=== PATIENT | male | born 1945 | race African-American/Black ===

== ENCOUNTER 2024-08-08 07:47 | Outpatient (REF) | payer OTHER, SELFPAY ==
--- OUTSIDE RECORDS SUMMARY | 2024-08-08 07:52 | XMS_ITS | Clinical Summary ---
Author Organization [facility] Address [address] [place] [address] Care Team Providers Care Relay Dispatcher Name Role Phone Natasha Ramírez CHEMICAL PRODUCTION MACHINE OPERATOR-Go Primary Care Provider [phone] Source Comments PLEASE NOTE, if this patient is a minor, it may be UNLAWFUL to discuss sensitive information that is contained in these records (such as FAMILY PLANNING, MENTAL HEALTH or SUBSTANCE ABUSE) with the minor patient's parent or other person without the patient's specific authorization.[facility] Allergies No known active allergies Medications aspirin [address] tabletIndications :Ischemic cardiomyopathy,My ocardial infarction, unspecified [place] type, unspecified artery (HCC-CMS),Coronar y artery disease involving [place] heart, unspecified vessel or lesion type, unspecified whether angina present Take 81 mg by mouth once daily 022 Active FARXIGA 10 mg tabIndications:Is chemic cardiomyopathy TAKE 1 TABLET BY MOUTH EVERY DAY FOR 90 DAYS 022 Active isosorbide mononitrate (IMDUR) 60 mg 24 hr tabletIndications :Ischemic cardiomyopathy TAKE 1 TABLET BY MOUTH EVERY DAY FOR 90 DAYS 023 Active metoprolol succinate XL (TOPROL-XL) 50 mg 24 hr tabletIndications :Ischemic cardiomyopathy,Es sential hypertension,Myoc ardial infarction, unspecified TX type, unspecified artery (HCC-CMS) TAKE 1 TABLET BY MOUTH EVERY DAY FOR 90 DAYS 023 Active ENTRESTO 97-103 mg tabIndications:Is chemic cardiomyopathy,Es sential hypertension,Myoc ardial infarction, unspecified [place] type, unspecified artery (HCC-CMS) TAKE 1 TABLET BY MOUTH TWICE A DAY FOR 90 DAYS 022 Active nitroglycerin (NITROSTAT) 0.4 mg SL tabletIndications :Ischemic cardiomyopathy,My ocardial infarction, unspecified TX type, unspecified artery ([facility]) TAKE 1 TABLET UNDER TONGUE EVERY 5 MINUTES FOR MAX 3 DOSES NEEDED FOR CHEST PAIN Active BRILINTA 90 mg tabIndications:Is chemic cardiomyopathy,Ve rtigo,Myocardial infarction, unspecified [place] type, unspecified artery ([facility]),Coronar y artery disease involving [place] heart, unspecified vessel or lesion type, unspecified whether angina present TAKE 1 TABLET BY MOUTH TWICE A DAY FOR 90 DAYS Active carbamide peroxide (DEBROX) 6.5 % otic solutionIndicatio ns:Impacted cerumen of left ear Place 5 Drops into the left ear 2 (two) times daily 15 mL Active blood sugar diagnostic stripsIndications :Type 2 diabetes mellitus with hyperglycemia, without long-term current use of insulin ([facility]) 1 Each daily. UAD once daily or as needed 100 Each 5 023 Active alcohol swabsIndications: Type 2 diabetes mellitus with hyperglycemia, without long-term current use of insulin ([facility]) UAD once daily or as needed 100 Each 5 023 Active lancetsIndication s:Type 2 diabetes mellitus with hyperglycemia, without long-term current use of insulin ([facility]) Once touch lancet, UAD once daily 100 Each 5 023 Active blood sugar diagnostic stripsIndications :Type 2 diabetes mellitus with hyperglycemia, without long-term current use of insulin ([facility]) 1 Each daily. One touch strips, UAD once daily 100 Each 023 Active blood-glucose meter (FREESTYLE LITE METER) monitoring kitIndications:Ty pe 2 diabetes mellitus with hyperglycemia, without long-term current use of insulin ([facility]) USE TO CHECK BLOOD SUGAR DIRECTED ONCE DAILY OR NEEDED 1 Each Active diclofenac sodium (VOLTAREN) 1 % gelIndications:Ar thralgia of both knees APPLY 2 G TOPICALLY 2 (TWO) TIMES DAILY. 100 g 2 Active Additional Information Patient not taking.Reported on 04/13/2024 furosemide (LASIX) 20 mg tabletIndications :Ischemic cardiomyopathy TAKE 3 TABLETS BY MOUTH EVERY DAY 270 Tablet 1 025 Active tirzepatide (MOUNJARO) 5 mg/0.5 mL pnijIndications:T ype 2 diabetes mellitus with hyperglycemia, without long-term current use of insulin ([facility]) Inject 5 mg into the skin once a week. 2 mL 2 025 Active atorvastatin (LIPITOR) 40 mg tabletIndications :Ischemic cardiomyopathy,My ocardial infarction, unspecified [place] type, unspecified artery ([facility]),Mixed hyperlipidemia,Co ronary artery disease involving [place] heart, unspecified vessel or lesion type, unspecified whether angina present TAKE 1 TABLET BY MOUTH EVERYDAY AT BEDTIME 90 Tablet 025 Active ferrous sulfate 325 mg (65 mg iron) EC tabletIndications :Anemia, unspecified type TAKE 1 TABLET BY MOUTH ONCE DAILY WITH BREAKFAST 90 Tablet 1 025 Active ferrous sulfate 325 mg (65 mg iron) EC tabletIndications :Anemia, unspecified type TAKE 1 TABLET BY MOUTH ONCE DAILY WITH BREAKFAST 90 Tablet 1 024 2024 Discontinued atorvastatin (LIPITOR) 40 mg tabletIndications :Ischemic cardiomyopathy,My ocardial infarction, unspecified [place] type, unspecified artery ([facility]),Mixed hyperlipidemia,Co ronary artery disease involving [place] heart, unspecified vessel or lesion type, unspecified whether angina present Take 1 Tablet by mouth nightly at bedtime 90 Tablet 025 2024 Discontinued tirzepatide (MOUNJARO) 5 mg/0.5 mL pnijIndications:T ype 2 diabetes mellitus with hyperglycemia, without long-term current use of insulin ([facility]) Inject 5 mg into the skin once a week 2 mL 2 025 2024 Discontinued(R eorder (E-Cancel Not Sent)) Active Problems Problem Noted Date Diagnosed Date Type 2 diabetes mellitus wit h hyperglycemia, without long-term current use of insulin ([facility]) 03/23/2022 Vertigo 03/19/2022 Polyp of colon 03/19/2022 Osteoarthritis of knee 03/19/2022 Overview (03/19/2022): [facility] Myocardial infarction ([facility]) 03/19/2022 Overview (03/19/2022): Bypass surgery 1989 at [id number] Hypertension 03/19/2022 Herpes zoster 03/19/2022 Overview (03/19/2022): 2011 Class 1 obesity due to exces s calories with serious comorbidity and body mass index (BMI) of 33.0 to 33.9 in adult 03/19/2022 Mixed hyperlipidemia 03/19/2022 Benign prostatic hyperplasia with urinary hesita ncy 03/19/2022 Prostate carcinoma ([facility]) 03/19/2022 Coronary artery disease involving [place] heart 0 03/19/2022 Ischemic cardiomyopathy 03/19/2022 Mild cognitive impairment 03/19/2022 Pulmonary nodule 03/19/2022 Anemia 03/19/2022 Encounters Date Type Department Care Team Description 07/15/2024 12:40 PM EDT Office Visit [facility] [address] [place] [address] Darling Lehman PA-C Foot pain, bilateral (Primary Dx) 05/24/2024 9:40 AM EDT Telemedicine Visit [facility] [address] [place] [address] PA-C Decreased hearing of right ear (Primary Dx); Vertigo from Last 3 Months Immunizations Immunization Administration Dates Next Due Flu, Adjuvant, 65y+ (Fluad) 12/30/2020 Flu, High Dose, 65y+, Fluzone High Dose 01/08/20 23,12/25/2021,12/01/2019 INFLUENZA, SEASONAL, INJECTABLE 12/05/2018,12/08,12/16/2016 PFIZER COVID VACCINE, PURPLE CAP, 12+ 11/29/2020 ,05/17/2020,04/26/2020 Pfizer COVID vaccine, COMIRN ATY, zamora cap, 12+ 07/04/2021 Pfizer COVID-19 (Comirnaty), Mrna, Lnp-s, Pf, Sal-sucrose, 30 Mcg/0.3 Ml, 12yr+ 04/16/2023 Pfizer-BioNTech COVID-19 Vac cine Bivalent, (ZAMORA PFIZER-BIONTECH COVID-19 VACCINE BIVALENT, (ZAMORA CAP 12/25/2021 TDAP 10/07/2022 ZOSTER VACCINE, RECOMBINANT (SHINGRIX) Family History Medical History Relation Name Comments Lung Cancer Father Diabetes Mother Stroke Mother aneurysm Mother Relation Name Status Comments Father Mother Social History Tobacco Use Types Packs/Day Years Used Date Smoking Tobacco: Former Cigarettes Q uit: 1987 Passive Smoke Exposure: Never Smokeless Tobacco: Never Tobacco Cessation:Counseling Given: Not Answered Comments:pt quit smoking 1987 Alcohol Use Standard Drinks/Week Comments Never 0 (1 standard drink = 0.6 oz pur e alcohol) Social Connections Answer Date Recorded Connectedness 1 04/13/2024 Financial Resource Strain Answer Date R ecorded Financial Resource Strain 1 2024 Stress Answer Date Recorded Stress 1 04/13/2024 Physical Activity Answer Date Recorded Physical Activity 0 03/19/2022 Food Insecurity Answer Date Recorded Food 1 04/13/2024 Transportation Needs Answer Date Record ed Transportation 1 04/13/2024 Housing Stability Answer Date Recorded Housing 1 04/13/2024 Safety and Environment Answer Date Bassam rded Safety 0 03/19/2022 Utilities Answer Date Recorded Utilities 1 04/13/2024 Employment Answer Date Recorded Employment 0 03/19/2022 Sex and Gender Information Value Date Recorded Sex Assigned at Male 03/19/2022 6:36 PM PST Legal Sex Male 6:48 AM PDT Gender Identity Male 03/19/2022 6:36 PM PST Sexual Orientation Straight 03/19/2022 6: 36 PM PST Last Filed Vital Signs Vital Sign Reading Time Taken Comments Blood Pressure 111/68 07/15/2024 10:12 AM EDT Pulse 61 04/13/2024 8:49 AM EST Temperature 36.8 ??C (98.3 ??F) 04/13/2024 8:49 AM ES T Respiratory Rate 16 07/15/2024 10:1 2 AM EDT Oxygen Saturation 97% 04/13/2024 8:49 AM EST Inhaled Oxygen Concentration - - Weight 85.2 kg (187 lb 12.8 oz) 025 10:12 AM EDT Height 165.1 cm (5' 5 ) 07/15/2024 10:1 2 AM EDT Body Mass Index 31.25 07/15/2024 10:12 AM EDT Plan of Treatment Health Maintenance Due Date Last Done Comments Imm-Pneumococcal 65+ (1 of 2 - PCV) 1966 Imm-Zoster, Recombinant (2 of 2) 03/07/2021 01/11/20 21 Diabetes HbA1c 07/08/2023 01/07/2023, 10/2022, 01/07/2023, Additional history exists Urine Albumin Creatinine Rat io Screening 07/25/2023 07/24/2022 Dental Examination 07/27/2023 07/24/2022 (M anaged by Outside Provider) Lipid Screening 01/08/2024 01/07/2023, 10/2022, 03/19/2022 Retinopathy Screening 08/08/2024 08/09/2023 , 08/09/2023, 07/24/2022 (Managed by Outside Provider) Serum Creatinine 03/26/2025 03/26/2024, 10/2022, 07/24/2022, Additional history exists Diabetes Foot Exam 04/13/2025 04/13/2024, 04/13/2024 Falls Prevention 04/13/2025 04/13/2024, 07/24/2022 Medicare Annual Wellness Visit 04/13/2025 04/13/2024 Tobacco Screening 07/15/2025 07/15/2024, , 04/16/2023, Additional history exists Imm-DTaP/Tdap/Td (2 - Td or Tdap) 10/07/2032 023 Colonoscopy Discontinued 02/17/2021 Colorectal Cancer Screening Discontinued Hepatitis C Screening Completed 03/19/2022 Imm-Influenza Completed 11/19/2023, 10/2022, 12/25/2021, Additional history exists Alcohol and Drug Screen Completed 04/13/2024, 03/19 Depression Annual Screen Completed 04/13/2024 [id number] Completed 05/10/2024, 10/30, 04/16/2023, Additional history exists CT Colonography Discontinued FIT/gFOBT Discontinued Fecal DNA Discontinued Flexible Sigmoidoscopy Discontinued Procedures Procedure Name Priority Date/Time Associated Diagnosis Comments EYE EXAM 08/09/2023 3:00 AM EDT COMPREHENSIVE METABOLIC PANEL Routine 01/07/2023 3:57 PM EST Routine general medical examination at a health care facility LIPID PANEL Routine 01/07/2023 3:57 PM EST Routine general medical examination at a health care facility HEMOGLOBIN GLYCOSYLATED A1C Routine 01/07/2023 3:57 PM EST Routine general medical examination at a health care facility MICROALBUMIN/CREATININ E RATIO, URINE, RANDOM Routine 07/24/2022 9:32 AM EDT Prostate carcinoma (HCC-CMS) Type 2 diabetes mellitus with hyperglycemia, without long-term current use of insulin (HCC-CMS) Class 1 obesity due to excess calories with serious comorbidity and body mass index (BMI) of 33.0 to 33.9 in adult Hypertension, unspecified type Myocardial infarction, unspecified [place] type, unspecified artery (HCC-CMS) Mixed hyperlipidemia Benign prostatic hyperplasia with urinary hesitancy Coronary artery disease involving [place] heart, unspecified vessel or lesion type, unspecified whether angina present Mild cognitive impairment Anemia, unspecified type HEPATITIS C AB W/RFLX HCV RNA, QT, RT PCR Routine 03/19/2022 4:20 PM EST Vertigo Essential hypertension Myocardial infarction, unspecified [place] type, unspecified artery (HCC-CMS) Class 1 obesity due to excess calories with serious comorbidity and body mass index (BMI) of 33.0 to 33.9 in adult Encounter to establish care Ischemic cardiomyopathy Prostate carcinoma (HCC-CMS) Benign prostatic hyperplasia with urinary hesitancy Anemia, unspecified type Mixed hyperlipidemia Coronary artery disease involving [place] heart, unspecified vessel or lesion type, unspecified whether angina present Mild cognitive impairment Pulmonary nodule HISTORIC COLONOSCOPY 02/17/2021 3:00 AM EST from Last 3 Months or Most Recently Relevant to Health Maintenance Results * EYE EXAM (08/09/2023 3:00 AM EDT) 08/09/2023 3:00 AM EDT us Natasha AZARP-C OTHER Edited Re sult - Final * (ABNORMAL) HEMOGLOBIN GLYCOSYLATED A1C (01/07/2023 3:57 PM EST) HEMOGLOBIN A1C 7.3(H) <5.7 % of total Hgb Editorially Comment: For someone without known diabetes, a hemoglobin A1c value of 6.5% or greater indicates that they may have diabetes and this should be confirmed with a follow-up test. For someone with known diabetes, a value <7% indicates that their diabetes is well controlled and a value greater than or equal to 7% indicates suboptimal control. A1c targets should be individualized based on duration of diabetes, age, comorbid conditions, and other considerations. Currently, no consensus exists regarding use of hemoglobin A1c for diagnosis of diabetes for children. ?? Blood Blood / Unknown 01/07/2023 3 :57 PM EST 01/07/2023 3:57 PM EST Narrative [facility] - 01/08/2023 6:57 AM EST FASTING:NO Natasha Ramírez CHEMICAL PRODUCTION MACHINE OPERATOR-C LAB - BLOOD DRAW Final Re sult [facility] [address] [place] [id number], Editorially [address] [place] [id number] * (ABNORMAL) LIPID PANEL (01/07/2023 3:57 PM EST) CHOLESTEROL, TOTAL 126 <200 mg/dL Editorially HDL CHOLESTEROL 31(L) > OR = 40 mg/dL Editorially TRIGLYCERIDES 247(H) <150 mg/dL Editorially Comment: If a non-fasting specimen was collected, consider repeat triglyceride testing on a fasting specimen if clinically indicated. Velasquez et al. J. of Clin. Lipidol. 2015;9:129-169. LDL-CHOLESTEROL 64 99 mg/dL (calc) Editorially Comment: Reference range: <100 Desirable range <100 mg/dL for primary prevention; ?? <70 mg/dL for patients with CHD or diabetic patients with > or = 2 CHD risk factors. LDL-C is now calculated using the Erin calculation, which is a validated novel method providing better accuracy than the Friedewald equation in the estimation of LDL-C. Ceasar RICKETTS et al. BANDAR. 2013;310(19): 2421-9421 (http://education.iFulfillment/faq/ENQ072) CHOL/HDLC RATIO 4.1 <5.0 (calc) [facility] NON-HDL CHOLESTEROL 95 <130 mg/dL (calc) [facility] Comment: For patients with diabetes plus 1 major ASCVD risk factor, treating to a non-HDL-C goal of <100 mg/dL (LDL-C of <70 mg/dL) is considered a therapeutic option. Blood Blood / Unknown 01/07/2023 3 :57 PM EST 01/07/2023 3:57 PM EST Narrative [facility] - 01/08/2023 6:57 AM EST FASTING:NO Natasha Ramírez CHEMICAL PRODUCTION MACHINE OPERATOR-C LAB - BLOOD DRAW Final Re sult [facility] [address] [address], [facility] [address] [address] * (ABNORMAL) COMPREHENSIVE METABOLIC PANEL (01/07/2023 3:57 PM EST) GLUCOSE 191(H) 65 - 139 mg/dL [facility] Comment: ?Non-fasting reference interval UREA NITROGEN (BUN) 31(H) 7 - 25 mg/dL [facility] CREATININE (blood) 1.65(H) 0.70 - 1.28 mg/dL [facility] EGFR 43(L) > OR = 60 mL/min/1. 73m2 [facility] BUN/CREATININE RATIO 19 6 - 22 (calc) [facility] SODIUM 137 135 - 146 mmol/L [facility] POTASSIUM 4.1 3.5 - 5.3 mmol/L [facility] CHLORIDE 102 98 - 110 mmol/L [facility] CARBON DIOXIDE 26 20 - 32 mmol/L [facility] CALCIUM 9.6 8.6 - 10.3 mg/dL [facility] PROTEIN, TOTAL 6.9 6.1 - 8.1 g/dL [facility] ALBUMIN 4.3 3.6 - 5.1 g/dL [facility] GLOBULIN 2.6 1.9 - 3.7 g/dL (calc) [facility] ALBUMIN/GLOBULI N RATIO 1.7 1.0 - 2.5 (calc) [facility] BILIRUBIN, TOTAL 0.5 0.2 - 1.2 mg/dL [facility] ALKALINE PHOSPHATASE 70 35 - 144 U/L [facility] AST 17 10 - 35 U/L [facility] ALT 18 9 - 46 U/L [facility] Blood Blood / Unknown 01/07/2023 3 :57 PM EST 01/07/2023 3:57 PM EST Narrative [facility] - 01/08/2023 6:57 AM EST FASTING:NO Natasha Ramírez CHEMICAL PRODUCTION MACHINE OPERATOR-C LAB - BLOOD DRAW Edited R esult - Final [facility] [address] [address], [facility] [address] [address] * (ABNORMAL) MICROALBUMIN/CREATININE RATIO, URINE, RANDOM (07/24/2022 9:32 AM EDT) CREATININE, RANDOM URINE 63 20 - 320 mg/dL [facility] MICROALBUMIN 5.9 mg/dL [facility] Comment: Reference Range Not established MICROALBUMIN/CREA TININE RATIO, RANDOM URINE 94(H) <30 mcg/mg creat [facility] Comment: The ADA defines abnormalities in albumin excretion as follows: Albuminuria Category ?Result (mcg/mg creatinine) Normal to Mildly increased ?? <30 Moderately increased ? 30-299 Severely increased ? > OR = 300 The ADA recommends that at least two of three specimens collected within a 3-6 month period be abnormal before considering a patient to be within a diagnostic category. Urine Urine specimen / Unknown 07/24/2022 9:32 AM EDT 07/24/2022 9:32 AM EDT Nan AZARP-C LAB URINE AMBULATORY Fin al Result Performing Organization Address City/[facility]/ZIP Co de Phone Number [place] [address], [facility] [facility] [address] [address] * HEPATITIS C AB W/RFLX HCV RNA, QT, RT PCR (03/19/2022 4:20 PM EST) HEPATITIS C ANTIBODY NON-REACT LEENA NON-REACT LEENA [facility] SIGNAL TO CUT-OFF <0.02 <1.00 [facility] Comment: HCV antibody was non-reactive. There is no laboratory evidence of HCV infection. In most cases, no further action is required. However, if recent HCV exposure is suspected, a test for HCV RNA (test code 69522) is suggested. For additional information please refer to http://Sw[employer]/faq/NWK42f7 (This link is being provided for informational/ educational purposes only.) Blood Blood / Unknown 03/19/2022 4 :20 PM EST 03/19/2022 4:21 PM EST Nan REYNOLDS-C LAB - BLOOD DRAW Edited Result - Final Performing Organization Address City/[facility]/ZIP Co de Phone Number [employer] [address] [address], [email or web address] [address] ([address], [place] [address] * HISTORIC COLONOSCOPY (02/17/2021 3:00 AM EST) 02/17/2021 3:00 AM EST Nan REYNOLDS-C PROCEDURES Final Re sult from Last 3 Months or Most Recently Relevant to Health Maintenance Insurance [place]IC[place] - [place] Care Teams Relay Dispatcher Relationship Specialty Start Date End Date Natasha Ramírez FNP-C [address] [place] [address] PCP - General Internal Medicine 11/23/22
== END 2024-08-08 07:48 | disposition home or self-care (01) ==
LOC: HO.SH 07:47
PROVIDERS: Visit Provider Student in an Organized Health Care Education/Training Program
DX: Z01.118 Encounter for examination of ears and hearing with other abnormal findings (principal); H90.3 Sensorineural hearing loss, bilateral
CPT/HCPCS: 92557; 92567